=== PATIENT | female | born 1985 | race Caucasian/White ===

== ENCOUNTER 2019-02-04 07:00 | Day surgery (SDC) | payer MEDICAID ==
[2019-02-01 10:44] LABS: BASOPHILS 0.2 % (0-2); EOSINOPHILS 1.6 % (0-7); HEMATOCRIT 42.3 % (36.0-48.0); HEMOGLOBIN 14.3 g/dL (12-16); IMMATURE GRANULOCYTES 0.2 % (0-5); LYMPHOCYTES 26.4 % (15-50); MCH 32.9 pg (26.0-34.0); MCHC 33.8 g/dL (31.0-37.0); MCV 97.5 fL (80.0-100.0); MEAN PLATELET VOLUME 10.7 fL (7.4-10.4); MONOCYTES 6.8 % (2-11); NEUTROPHILS 64.8 % (40-80); PLATELET COUNT 264 10x3/uL (130-400); RBC 4.34 10x6/uL (4.00-5.40); RDW 12.4 % (11.5-14.5); WBC 5.7 10x3/uL (4.8-10.8)
[2019-02-01 10:50] LABS: CALC OSMOLALITY 278 mosm/kg (275-300); CARBON DIOXIDE 27.7 mmol/L (21.0-32.0); CHLORIDE - SERUM 105 mmol/L (98-107); CREATININE - SERUM 0.7 mg/dL (0.6-1.3); GLUCOSE 98 mg/dL (74-106); POTASSIUM - SERUM 3.9 mmol/L (3.5-5.1); SODIUM 141 mmol/L (136-145); UREA NITROGEN 8 mg/dL (7-18); eGFR NON AFRICAN AMERICAN > 90 mL/min (90-120)
[~2019-02-04] VITALS: Ht 160 cm; Wt 75.9 kg
[2019-02-04] VITALS (8 sets, daily range): BP systolic 118–160; BP diastolic 69–82; Ht 160 cm; Wt 75.9 kg
--- NOTE | 2019-02-04 14:54 | NUR ---
RECEIVED PT FROM VIA BED TO ROOM 1274. BED LOCKED AND PLACED IN LOW POSITION. VSS. HRRR WITHOUT AUDIBLE MURMUR. BBS CLEAR. BS HYPOACTIVE X 4. 3 LAP INCISIONS. NO REDNESS, SWELLING OR DRAINAGE NOTED. ICE PACK TO INCISIONS. NO VAGINAL DISCHARGE NOTED. OTERO TO GRAVITY DRAINING DARK, YELLOW URINE. SCDS ON BLE. PUMP ON. PIV OF NS INFUSING AT 150 ML/HR. SITE CLEAR TO LEFT FOREARM. PT FREQUENTLY DROWSY. PAIN OF "4" ON 0-10 PAIN SCALE. SR UP X 2. CALL LIGHT IN REACH.
--- NOTE | 2019-02-04 15:01 | NUR ---
O2 PER N/C ON AT 2 L/MIN FOR O2 SAT OF 91-92%. SAT UP TO 98%.
--- NOTE | 2019-02-04 15:36 | NUR ---
PT LYING IN SEMI-WORTHY'S POSITION IN BED. EYES CLOSED. RESP NON-LABORED. PT NOT DISTURBED TO ALLOW FOR REST.
--- NOTE | 2019-02-04 16:20 | NUR ---
PT AWAKE. TOLERATING SPRITE. DENIES NAUSEA. REQUESTING TO DC HOME.
--- NOTE | 2019-02-04 16:35 | NUR ---
OTERO DC'D WITH 30 ML OF DARK, YELLOW URINE NOTED IN BAG. PT IVANIA WELL.
--- NOTE | 2019-02-04 16:40 | NUR ---
PIV CONVERTED TO SALINE LOCK. PT OOB AND AMB TO BR. VOIDS MOD AMT OF BLOOD-TINGED URINE. PERICARE DONE. PAD AND PANTIES ON. PT AMB BACK TO BED. STATES DESIRE TO DC HOME. DR COLVIN ON UNIT. ORDERS RECEIVED.
--- NOTE | 2019-02-04 16:50 | NUR ---
SL DC'D WITH CATHELON INTACT. PRESSURE BANDAGE TO SITE. PT UP TO DRESS.
[2019-02-04] MEDS ORDERED: MOBIC7.5 MG PO (16:59)
[2019-02-04] MEDS ORDERED: NEURONTIN 300300 MG PO (16:59)
[2019-02-04] MEDS ORDERED: PERCOCET 7.5/321 TAB PO (16:59)
--- NOTE | 2019-02-04 17:13 | NUR ---
D/C INSTRUCTIONS REVIEWED W/ PT & PT'S . PT VOICED UNDERSTANDING OF ALL INSTRUCTIONS. PT GIVEN RX'S AT THIS TIME.
--- NOTE | 2019-02-04 17:20 | NUR ---
PT WHEELED OUT TO AUTO BY RN IN STABLE CONDITION.
--- NOTE | 2019-02-22 07:38 | OP ---
PATIENT NAME: KUSUM GALVAN MEDICAL RECORD: [id number] :84 LOCATION:D.OPS ADMISSION DATE: SURGEON: VERONICA COLVIN MD DATE OF OPERATION: 02/04/2019 PREOPERATIVE DIAGNOSES: 1. Pelvic pain. 2. History of abnormal Pap smear. POSTOPERATIVE DIAGNOSES: 1. Pelvic pain. 2. History of abnormal Pap smear. PROCEDURE: 1. Diagnostic laparoscopy. 2. Total laparoscopic hysterectomy. 3. Bilateral salpingectomy. SURGEON: Veronica Colvin MD ANESTHESIOLOGIST: Dr. Lindsey ANESTHETIC: General. FINDINGS: Uterus is enlarged and boggy consistent with adenomyosis. It is otherwise unremarkable. The tubes and ovaries are also unremarkable. What was visualized of the abdominal anatomy was unremarkable. SPECIMENS REMOVED: Uterus with cervix and bilateral tubes. SPECIMEN DISPOSITION: All specimens to pathology. ESTIMATED BLOOD LOSS: 200 cc. FLUIDS: 1400 cc of lactated Ringer's. URINE OUTPUT: 250 cc of clear urine. COMPLICATIONS: None. DRAIN: Gotti to gravity discontinued in the PACU. INDICATIONS: The patient is a 33-year-old female with history of irregular Pap smear and undesired fertility. The patient also has been suffering from chronic pelvic pain and has failed conservative management. The patient also is reporting deep pelvic pressure and pain with cycles and dysmenorrhea. DESCRIPTION OF PROCEDURE: After informed consent was assured, the patient was taken to the operating room where anesthetic was obtained without difficulty. The patient is now prepped in the usual sterile fashion after being placed in the [facility]. Uterine manipulator was placed and attention was directed to the abdomen. An incision was made in the umbilicus to accommodate a 5-mm trocar, which was inserted and pneumoperitoneum developed. Accessory ports were placed in the right and left lower quadrant once the patient has been placed in Trendelenburg position. Using a blunt probe, the bowel was free of OPERATIVE REPORT [id number] KUSUM GALVAN the pelvis. Using the uterine manipulator, the right tube is visualized and elevated. Using Thunderbeat coagulation cutter from the right, the tissues attaching the tube to the adnexa were compressed, coagulated, and . This dissection was carried out over the uterine ovarian ligaments and round ligaments. The anterior leaf of the broad ligament was opened and the dissection concluded at the midline to the bladder flap. This was repeated on the contralateral side after compressing coagulating, and the vascular bundle of the right side. With attention directed to the left, the left tube was mobilized in similar fashion and dissection was carried out over the left uteroovarian and round ligaments. The anterior leaf of the broad ligament was now opened and the bladder flap fully developed. The posterior leaf was dissected free of the vascular bundle of the left side, which is now compressed, coagulated, and at the level of the internal os. Dissection now begins of the uterus from its attachments to the superior vagina. This dissection begins at the 12 o'clock moving counterclockwise and concludes at the 6 o' clock. This was repeated on the contralateral side, again starting at the 12 o'clock and concluding at the o'clock position, moving clockwise. The uterus was pulled into the vagina. Pneumoperitoneum is maintained. The pelvis was irrigated and bleeding vessels are cauterized. The vaginal cuff was now closed with interrupted Vicryl using an EndoStitch. These are secured with extracorporeal knot tie. Care was taken to include the uterosacral ligaments at both right and left corners of the vaginal cuff. The pelvis was irrigated again and irrigant removed. There are some small bleeding vessels and this is controlled with the use of Toney. After the Toney has been placed, pneumoperitoneum was released as the trocars were removed. The specimens were removed from the vagina and then passed off the field. All sites were closed with a subcuticular stitch and covered with Dermabond. Sponge, lap, needle counts were correct times 2. DISPOSITION: The patient was awakened and went to the recovery area in stable condition. TRANSINT:[id number] Voice Confirmation ID: [id number] DOCUMENT ID: [id number] VERONICA COLVIN MD at 0738 CC: [id number] DICTATION DATE: 02/21/19 170 FORMAT PROOFREADER: 02/22/19 0329 [facility] 02/04/[address] [id number]
== END 2019-02-04 17:20 | disposition home or self-care (01) ==
LOC: D.OPS 07:00 → D.PAN 09:45 → D.LD 14:23 → D.OPS 17:20
PROVIDERS: ATTEND Obstetrics & Gynecology
DX: R10.2 Pelvic and perineal pain (principal); N94.10 Unspecified dyspareunia; N87.9 Dysplasia of cervix uteri, unspecified; Z87.42 Personal history of other diseases of the female genital tract

== ENCOUNTER 2020-05-28 02:17 | Emergency (ER) | payer MEDICAID ==
[~2020-05-28] VITALS: Ht 157.5 cm; Wt 70.5 kg
[~2020-05-28 02:17] MED LIST: MOBIC7.5 MG PO; NEURONTIN 300300 MG PO; PERCOCET 7.5/321 TAB PO
[2020-05-28 02:19] VITALS: Ht 157.5 cm; Wt 70.5 kg
[2020-05-28 04:00] VITALS: BP 124/81
[2020-05-28 15:05] VITALS: Ht 157.5 cm; Wt 70.5 kg
== END 2020-05-28 03:59 | disposition home or self-care (01) ==
LOC: D.ER
DX: S81.011A Laceration without foreign body, right knee, initial encounter (principal); W22.8XXA Striking against or struck by other objects, initial encounter; Y93.9 Activity, unspecified; Y92.9 Unspecified place or not applicable